=== PATIENT | female | born 1990 ===

== ENCOUNTER 2021-08-22 03:53 | Inpatient (IN) | payer MEDICAID ==
[2021-08-22] MEDS ORDERED: Ondansetron 4 MG/2 ML SDV IVPUSH PRN (05:56)
[2021-08-22] MEDS ORDERED: Sodium Chloride 0.9% 10 ML Syringe FLUSH PRN (05:56)
[2021-08-22] MEDS ORDERED: Nalbuphine 10 MG/1 ML Vial IVPUSH PRN (05:56)
[2021-08-22] MEDS ORDERED: Sodium Chloride 0.9% 2.5 ML Syringe FLUSH PRN (05:56)
[2021-08-22] MEDS ORDERED: Misoprostol 200 MCG Tab PO PRN (05:56)
[2021-08-22] MEDS ORDERED: Carboprost Tromethamine 250 MCG/1 ML Amp IM PRN ×2 (05:56→14:59)
[2021-08-22] MEDS ORDERED: Lidocaine 1% 50 ML MDV INJECT PRN (05:56)
[2021-08-22] MEDS ORDERED: Water For Irrigation,Sterile 1,000 ML Container IRR PRN (05:56)
[2021-08-22] MEDS ORDERED: Butorphanol 1 MG/ML SDV IVPUSH PRN (05:56)
[2021-08-22] MEDS ORDERED: Sodium Chloride 0.9% 20 ML SDV IV PRN (05:56)
[2021-08-22] MEDS ORDERED: Methylergonovine 0.2 MG/1 ML Amp IM PRN ×2 (05:56→14:59)
[2021-08-22] MEDS ORDERED: Terbutaline 1 MG/ML SDV SUBCUT PRN (05:56)
[2021-08-22] MEDS ORDERED: Tranexamic Acid 1,000 MG in Sodium Chloride 0.9% 100 ML IV PRN ×2 (05:56→14:59)
[2021-08-22] MEDS ORDERED: Lactated Ringers 1,000 ML IV SCH (06:00)
[2021-08-22] MEDS ORDERED: Oxytocin/0.9 % Sodium Chloride 30 UNIT/500 ML BAG IV SCH ×2 (06:00)
[2021-08-22] MEDS ORDERED: Ropivacaine 100 ML ONE (06:21)
[2021-08-22] MEDS ORDERED: ePHEDrine 50 MG/ML SDV IVPUSH PRN ×2 (06:29)
[2021-08-22] MEDS ORDERED: Ropivacaine 200 MG in Premix Bag 1 BAG EPIDUR SCH (06:30)
[2021-08-22] MEDS ORDERED: Lanolin 100% Cream 7 GM Tube TOP PRN (14:59)
[2021-08-22] MEDS ORDERED: Witch Hazel Medicated Pads 40/Jar TOP PRN (14:59)
[2021-08-22] MEDS ORDERED: Misoprostol 200 MCG Tab RECTAL PRN (14:59)
[2021-08-22] MEDS ORDERED: Docusate Sodium 100 MG Cap PO PRN (14:59)
[2021-08-22] MEDS ORDERED: oxyCODONE 5 MG Tab PO PRN (14:59)
[2021-08-22] MEDS ORDERED: Acetaminophen 500 MG Tab PO PRN (14:59)
[2021-08-22] MEDS ORDERED: Ibuprofen 400 MG Tab PO PRN (14:59)
[2021-08-22] MEDS ORDERED: Bisacodyl 10 MG Supp RECTAL PRN (14:59)
[2021-08-22] MEDS: Benzocaine/Menthol 20%-0.5% Spray 78 GM Cannister TOP PRN (17:22)
[2021-08-22] MEDS: Ibuprofen 800 MG Tab PO PRN (17:23)
[2021-08-23] MEDS: Ibuprofen 800 MG Tab PO PRN ×2 (06:52→20:08)
[2021-08-23] MEDS: Acetaminophen 500 MG Tab PO PRN (09:54)
[2021-08-24] MEDS: Ibuprofen 800 MG Tab PO PRN ×2 (04:18→11:50)
[2021-08-24] MEDS: Acetaminophen 500 MG Tab PO PRN (08:40)
[2021-08-24] MEDS: Benzocaine/Menthol 20%-0.5% Spray 78 GM Cannister TOP PRN (13:06)
== END 2021-08-24 14:20 | disposition home or self-care (01) | DRG 807 ==
LOC: MW.OBCHECK 03:53 → MW.OB 03:54 → MW.OBCHECK 05:56 → OBSVTOIN 14:59 → MW.OB 17:43
PROVIDERS: ADMIT Obstetrics & Gynecology; ATTEND Obstetrics & Gynecology
PROC: 10E0XZZ Delivery of Products of Conception, External Approach (ICD-10-PCS; principal; 2021-08-22)
PROC: 10907ZC Drainage of Amniotic Fluid, Therapeutic from Products of Conception, Via Natural or Artificial Opening (ICD-10-PCS; 2021-08-22)
PROC: 0UQMXZZ Repair Vulva, External Approach (ICD-10-PCS; 2021-08-22)
PROC: 3E0234Z Introduction of Serum, Toxoid and Vaccine into Muscle, Percutaneous Approach (ICD-10-PCS; 2021-08-24)
DX: O99.284 Endocrine, nutritional and metabolic diseases complicating childbirth (principal); Z37.0 Single live birth; E06.3 Autoimmune thyroiditis; O71.82 Other specified trauma to perineum and vulva; O77.0 Labor and delivery complicated by meconium in amniotic fluid; O69.81X0 Labor and delivery complicated by cord around neck, without compression, not applicable or unspecified; Z20.822 Contact with and (suspected) exposure to COVID-19; O26.893 Other specified pregnancy related conditions, third trimester; Z3A.38 38 weeks gestation of pregnancy; Z67.11 Type A blood, Rh negative
CPT/HCPCS: 01967; 36415; 36430; 51702; 59025; 59409; 82803; 85014; 85018; 85027; 85460; 86592; 86850; 86900; 86901; A9270-GY; J2590; J2790; J2795; J7120; U0002